=== PATIENT | female | born 1945 | race Caucasian/White ===

== ENCOUNTER 2024-12-23 23:04 | Inpatient (IN) | payer MEDICARE ==
[2024-12-24 02:20] VITALS: BMI 26.3
[2024-12-24] MEDS ORDERED: Acetaminophen 325 MG TAB PO PRN (02:55)
[2024-12-24] MEDS ORDERED: Dextrose 50% Abboject 50 ML SYRINGE SLOW IVP PRN (02:55)
[2024-12-24] MEDS ORDERED: Glucagon 1 MG/ML KIT IM PRN (02:55)
[2024-12-24] MEDS ORDERED: hydrALAZINE 20 MG/ML VIAL SLOW IVP PRN (03:23)
[2024-12-24] MEDS: Acetaminophen 500 MG TAB PO SCH (03:23)
[2024-12-24 03:36] LABS: #Basophils 0.04 10x3/uL (0.0-0.2); #Eosinophils 0.27 10x3/uL (0.0-0.7); #Monocytes 0.56 10x3/uL (0.11-0.59); #Neutrophils 4.68 10x3/uL (1.40-6.50); %Basophils 0.5 % (0.0-1.0); %Eosinophils 3.6 % (0.0-10.0); %Lymphocytes 25.0 % (21.0-51.0); %Monocytes 7.5 % (0.0-10.0); %Neutrophils 63.1 % (42.0-75.0); Hematocrit 36.3 % (36.0-47.0); Hemoglobin 11.9 g/dL (12.0-16.0); Mean Corpuscular Hemoglobin 27.5 pg (27.0-31.0); Mean Corpuscular Volume 83.8 fL (78.0-98.0); Platelet Count 190 10x3/uL (130-400); Red Blood Cell (RBC) Count 4.33 mill/uL (4.20-5.40); White Blood Cell (WBC) Count 7.43 10x3/uL (4.8-10.8)
[2024-12-24 04:26] LABS: ALT (SGPT) 9 U/L (Less than 34); AST (SGOT) 17 U/L (11-34); Albumin 3.7 g/dL (3.1-4.5); Alkaline Phosphatase 77 U/L (40-110); Anion Gap 16 mmol/L (10-20); BUN (Urea Nitrogen) 26 mg/dL (9.8-20.1); Bilirubin, Total 0.5 mg/dL (0.3-1.2); Calc. Creatinine Clearance 62 mL/min (70-130); Calcium 9.6 mg/dL (7.8-10.44); Carbon Dioxide 21 mmol/L (23-31); Cardiac Risk 2.8 (Less than 4.5); Chloride 106 mmol/L (98-107); Cholesterol 107 mg/dl (< 200 Desired); Globulin 2.9 g/dL (2.4-3.5); Glucose 83 mg/dL (83-110); HDL Cholesterol 38 mg/dL (>60 Neg Risk); LDL Cholesterol, Calculated 55 mg/dL; Potassium 3.6 mmol/L (3.5-5.1); Sodium 139 mmol/L (136-145); Triglycerides 72 mg/dL (Less than 150)
[2024-12-24] MEDS: Losartan 25 MG TAB PO SCH (05:37)
[2024-12-24] MEDS ORDERED: Aspirin 325 MG TAB PO SCH ×2 (07:30→09:00)
[2024-12-24] MEDS ORDERED: Nitroglycerin 50 MG/250 ML BOT 250 ML IVPB SCH (07:45)
[2024-12-24] MEDS: Enoxaparin 80 MG (0.8 mL) SYRINGE SC SCH (08:57)
[2024-12-24] MEDS ORDERED: Enoxaparin 80 MG (0.8 mL) SYRINGE SC SCH (09:00)
[2024-12-24] MEDS ORDERED: [UNRECOGNIZED DRUG - OTHER] FS SCH (09:15)
[2024-12-24] MEDS ORDERED: Lidocaine 1% (PF) 30 ML VIAL ONE (11:24)
[2024-12-24] MEDS ORDERED: Adenosine 6 mg (2 mL) VIAL ONE ×2 (11:24→11:27)
[2024-12-24] MEDS ORDERED: Heparin 10,000 UNITS/ 10 ML VIAL ONE (11:24)
[2024-12-24] MEDS ORDERED: Nitroglycerin 50 MG/250 ML BOT 250 ML ONE (11:25)
[2024-12-24] MEDS ORDERED: PHENYLEPHRINE-NS 100 MCG/ML 10 ML SYRINGE ONE (11:25)
[2024-12-24] MEDS ORDERED: Iopamidol 370 76% 100 ML VIAL ONE (11:51)
[2024-12-24] MEDS ORDERED: hydrALAZINE 20 MG/ML VIAL ONE (12:27)
[2024-12-24] MEDS ORDERED: Nitroglycerin 0.4 MG TAB (25 Tab Bottle) SL PRN (13:02)
[2024-12-24] MEDS ORDERED: Acetaminophen 325 MG TAB ONE (14:08)
[2024-12-24] MEDS ORDERED: Ondansetron PF 4 MG/2 ML Vial ONE (14:15)
[2024-12-24] MEDS: Carvedilol 6.25 MG TAB PO SCH (20:39)
[2024-12-24] MEDS: Acetaminophen 325 MG TAB PO PRN (20:40)
[2024-12-25 05:32] LABS: Bacteria/HPF None Seen HPF (None Seen); CAUTI Indications for Culture Acute Hematuria; Glucose, Urine (Dipstick) 500 mg/dL (Negative); Leukocyte 250 Leu/uL (Negative); Protein, Urine (Dipstick) 200 mg/dL (Neg-Trace); Specific Gravity, Urine 1.025 (1.002-1.036)
[2024-12-25 05:33] LABS: RBC/HPF 21-50 HPF (0-3)
[2024-12-25 05:35] LABS: Urine Culture Reflex Yes Yes
[2024-12-25 06:19] LABS: #Basophils 0.05 10x3/uL (0.0-0.2); #Eosinophils Less than 0.03 10x3/uL (0.0-0.7); #Monocytes 0.81 10x3/uL (0.11-0.59); #Neutrophils 10.53 10x3/uL (1.40-6.50); %Basophils 0.4 % (0.0-1.0); %Eosinophils 0.0 % (0.0-10.0); %Lymphocytes 11.5 % (21.0-51.0); %Monocytes 6.3 % (0.0-10.0); %Neutrophils 81.3 % (42.0-75.0); Hematocrit 39.1 % (36.0-47.0); Hemoglobin 12.6 g/dL (12.0-16.0); Mean Corpuscular Hemoglobin 27.5 pg (27.0-31.0); Mean Corpuscular Volume 85.2 fL (78.0-98.0); Platelet Count 226 10x3/uL (130-400); Red Blood Cell (RBC) Count 4.59 mill/uL (4.20-5.40); White Blood Cell (WBC) Count 12.94 10x3/uL (4.8-10.8)
[2024-12-25 06:38] LABS: ALT (SGPT) 9 U/L (Less than 34); AST (SGOT) 22 U/L (11-34); Albumin 3.4 g/dL (3.1-4.5); Alkaline Phosphatase 74 U/L (40-110); Anion Gap 23 mmol/L (10-20); BUN (Urea Nitrogen) 28 mg/dL (9.8-20.1); Bilirubin, Total 0.8 mg/dL (0.3-1.2); Calc. Creatinine Clearance 44 mL/min (70-130); Calcium 9.0 mg/dL (7.8-10.44); Carbon Dioxide 16 mmol/L (23-31); Chloride 102 mmol/L (98-107); Globulin 2.9 g/dL (2.4-3.5); Glucose 105 mg/dL (83-110); Potassium 3.8 mmol/L (3.5-5.1); Sodium 137 mmol/L (136-145)
[2024-12-25] MEDS: Aspirin 81 mg Enteric Coated Tablet PO SCH (09:36)
[2024-12-25] MEDS: cefTRIAXone\\ROCEPHIN 1 GM in Sodium Chloride 0.9% 100 ML IVPB SCH (09:36)
[2024-12-25] MEDS: Losartan 25 MG TAB PO SCH (09:37)
[2024-12-25] MEDS: EPINEPHrine 1 MG/10 ML Abboject SYRINGE FS SCH (12:40)
[2024-12-26 04:11] LABS: #Basophils Less than 0.03 10x3/uL (0.0-0.2); #Eosinophils 0.36 10x3/uL (0.0-0.7); #Monocytes 0.65 10x3/uL (0.11-0.59); #Neutrophils 5.41 10x3/uL (1.40-6.50); %Basophils 0.2 % (0.0-1.0); %Eosinophils 4.4 % (0.0-10.0); %Lymphocytes 20.8 % (21.0-51.0); %Monocytes 8.0 % (0.0-10.0); %Neutrophils 66.2 % (42.0-75.0); Hematocrit 31.2 % (36.0-47.0); Hemoglobin 10.3 g/dL (12.0-16.0); Mean Corpuscular Hemoglobin 27.6 pg (27.0-31.0); Mean Corpuscular Volume 83.6 fL (78.0-98.0); Platelet Count 184 10x3/uL (130-400); Red Blood Cell (RBC) Count 3.73 mill/uL (4.20-5.40); White Blood Cell (WBC) Count 8.17 10x3/uL (4.8-10.8)
[2024-12-26 04:31] LABS: ALT (SGPT) 8 U/L (Less than 34); AST (SGOT) 18 U/L (11-34); Albumin 2.9 g/dL (3.1-4.5); Alkaline Phosphatase 60 U/L (40-110); Anion Gap 14 mmol/L (10-20); BUN (Urea Nitrogen) 34 mg/dL (9.8-20.1); Bilirubin, Total 0.5 mg/dL (0.3-1.2); Calc. Creatinine Clearance 40 mL/min (70-130); Calcium 8.3 mg/dL (7.8-10.44); Carbon Dioxide 22 mmol/L (23-31); Chloride 100 mmol/L (98-107); Globulin 2.7 g/dL (2.4-3.5); Glucose 98 mg/dL (83-110); Potassium 3.5 mmol/L (3.5-5.1); Sodium 132 mmol/L (136-145)
[2024-12-26 12:58] VITALS: BP 124/69; TEMP 97.8
== END 2024-12-26 14:45 | disposition home or self-care (01) | DRG 322 ==
LOC: 2NO 12-24 01:47 → INTOOBSV 12-24 01:47 → CCU 12-24 17:29 → OBSVTOIN 12-24 17:53 → PCU 12-25 15:54
PROVIDERS: ADMIT Family Medicine; ATTEND Family Medicine
PROC: 027036Z Dilation of Coronary Artery, One Artery with Three Drug-eluting Intraluminal Devices, Percutaneous Approach (ICD-10-PCS; principal; 2024-12-24)
PROC: 3E03329 Introduction of Other Anti-infective into Peripheral Vein, Percutaneous Approach (ICD-10-PCS; 2024-12-24)
PROC: 3E033XZ Introduction of Vasopressor into Peripheral Vein, Percutaneous Approach (ICD-10-PCS; 2024-12-25)
PROC: B2111ZZ Fluoroscopy of Multiple Coronary Arteries using Low Osmolar Contrast (ICD-10-PCS; 2024-12-25)
PROC: B2151ZZ Fluoroscopy of Left Heart using Low Osmolar Contrast (ICD-10-PCS; 2024-12-25)
DX: I21.4 Non-ST elevation (NSTEMI) myocardial infarction (principal); I16.1 Hypertensive emergency; N39.0 Urinary tract infection, site not specified; E87.1 Hypo-osmolality and hyponatremia; N17.9 Acute kidney failure, unspecified; I25.10 Atherosclerotic heart disease of native coronary artery without angina pectoris; E11.22 Type 2 diabetes mellitus with diabetic chronic kidney disease; E11.40 Type 2 diabetes mellitus with diabetic neuropathy, unspecified; E78.5 Hyperlipidemia, unspecified; Z96.653 Presence of artificial knee joint, bilateral; E87.70 Fluid overload, unspecified; N18.30 Chronic kidney disease, stage 3 unspecified; D53.9 Nutritional anemia, unspecified; E83.52 Hypercalcemia; I12.9 Hypertensive chronic kidney disease with stage 1 through stage 4 chronic kidney disease, or unspecified chronic kidney disease; Z79.899 Other long term (current) drug therapy; Z98.890 Other specified postprocedural states; Z90.49 Acquired absence of other specified parts of digestive tract; Z88.5 Allergy status to narcotic agent; Z90.710 Acquired absence of both cervix and uterus; Z95.1 Presence of aortocoronary bypass graft; Z79.82 Long term (current) use of aspirin; I25.2 Old myocardial infarction; Z95.5 Presence of coronary angioplasty implant and graft; M54.9 Dorsalgia, unspecified; G89.29 Other chronic pain; Z85.3 Personal history of malignant neoplasm of breast; Z90.13 Acquired absence of bilateral breasts and nipples; R79.1 Abnormal coagulation profile; D63.1 Anemia in chronic kidney disease; E86.0 Dehydration; R31.9 Hematuria, unspecified; B96.1 Klebsiella pneumoniae [K. pneumoniae] as the cause of diseases classified elsewhere
CPT/HCPCS: 36415; 36416; 80053; 80061; 81001; 83036; 84443; 84484; 85025; 85347; 87077; 87086; 87186; 93005; 93010; 93458; 96372; 96374; 99152; 99153; C1769; C1874; C1887; G0378; J0153; J0165; J0360; J0461; J0696; J1644; J1650; J2250; J2405; J3010; J7030; J7120; Q9967

== ENCOUNTER 2025-01-16 04:19 | Inpatient (IN) | payer MEDICARE ==
[2025-01-16] MEDS ORDERED: Ondansetron PF 4 MG/2 ML Vial IVP PRN (06:00)
[2025-01-16] MEDS ORDERED: TIRZEPATIDE 5 MG/0.5 ML SQ SCH (06:15)
[2025-01-16 06:32] LABS: #Basophils 0.05 10x3/uL (0.0-0.2); #Eosinophils 0.49 10x3/uL (0.0-0.7); #Monocytes 0.43 10x3/uL (0.11-0.59); #Neutrophils 3.25 10x3/uL (1.40-6.50); %Basophils 0.9 % (0.0-1.0); %Eosinophils 8.6 % (0.0-10.0); %Lymphocytes 25.5 % (21.0-51.0); %Monocytes 7.6 % (0.0-10.0); %Neutrophils 57.2 % (42.0-75.0); Hematocrit 34.4 % (36.0-47.0); Hemoglobin 10.7 g/dL (12.0-16.0); Mean Corpuscular Hemoglobin 27.3 pg (27.0-31.0); Mean Corpuscular Volume 87.8 fL (78.0-98.0); Platelet Count 187 10x3/uL (130-400); Red Blood Cell (RBC) Count 3.92 mill/uL (4.20-5.40); White Blood Cell (WBC) Count 5.68 10x3/uL (4.8-10.8)
[2025-01-16 06:33] VITALS: BMI 25.7
[2025-01-16] MEDS ORDERED: Dextrose 50% Abboject 50 ML SYRINGE SLOW IVP PRN (06:33)
[2025-01-16] MEDS ORDERED: Glucagon 1 MG/ML KIT IM PRN (06:33)
[2025-01-16 06:47] LABS: ALT (SGPT) 12 U/L (Less than 34); AST (SGOT) 16 U/L (11-34); Albumin 3.6 g/dL (3.1-4.5); Alkaline Phosphatase 76 U/L (40-110); Anion Gap 12 mmol/L (10-20); BUN (Urea Nitrogen) 18 mg/dL (9.8-20.1); Bilirubin, Total 0.6 mg/dL (0.3-1.2); Calc. Creatinine Clearance 62 mL/min (70-130); Calcium 9.5 mg/dL (7.8-10.44); Carbon Dioxide 23 mmol/L (23-31); Chloride 109 mmol/L (98-107); Globulin 2.8 g/dL (2.4-3.5); Glucose 98 mg/dL (83-110); Potassium 3.5 mmol/L (3.5-5.1); Sodium 140 mmol/L (136-145)
[2025-01-16] MEDS ORDERED: Non-Formulary Item 1 EACH (Cholecalciferol (Vitamin D3) [Vitamin D3] 125 MCG Capsule) PO SCH (09:00)
[2025-01-16] MEDS ORDERED: Non-Formulary Item 1 EACH (Carvedilol [Carvedilol] 12.5 MG Tablet) PO SCH (09:00)
[2025-01-16] MEDS ORDERED: Non-Formulary Item 1 EACH (Losartan Potassium [Losartan Potassium] 100 MG Tablet) PO SCH (09:00)
[2025-01-16] MEDS ORDERED: Non-Formulary Item 1 EACH (Aspirin [Aspirin] 81 MG Tablet) PO SCH (09:00)
[2025-01-16] MEDS: Cholecalciferol 1,000 UNITS (25 MCG) TAB PO SCH (09:01)
[2025-01-16] MEDS: Aspirin Chewable 81 MG TAB PO SCH (09:01)
[2025-01-16] MEDS: Carvedilol 6.25 MG TAB PO SCH (09:02)
[2025-01-16] MEDS: Losartan 25 MG TAB PO SCH (09:02)
[2025-01-16] MEDS: Isosorbide Mononitrate 30 MG ER.TAB.S PO SCH (09:02)
[2025-01-16] MEDS ORDERED: Tirzepatide [Mounjaro] 5 MG/0.5 ML Pen.Injctr SC SCH (12:00)
[2025-01-16] MEDS ORDERED: Non-Formulary Item 1 EACH (Ondansetron Hcl [Zofran] 4 MG Tab) SL SCH (12:00)
[2025-01-16] MEDS ORDERED: Iopamidol-370 76% 500 ML MDV (1 ML CHARGE) ONE (12:27)
[2025-01-16] MEDS: Nitroglycerin 0.4 MG TAB (25 Tab Bottle) SL PRN (13:59)
[2025-01-16] MEDS: Acetaminophen 325 MG TAB PO PRN (17:12)
[2025-01-16] MEDS: Enoxaparin 40 MG (0.4 mL) SYRINGE SC SCH (18:39)
[2025-01-16] MEDS: CO Q-10 CAPSULE 100 MG PO SCH (19:51)
[2025-01-17 04:45] LABS: ALT (SGPT) 10 U/L (Less than 34); AST (SGOT) 15 U/L (11-34); Albumin 3.2 g/dL (3.1-4.5); Alkaline Phosphatase 73 U/L (40-110); Anion Gap 13 mmol/L (10-20); BUN (Urea Nitrogen) 15 mg/dL (9.8-20.1); Bilirubin, Total 0.5 mg/dL (0.3-1.2); Calc. Creatinine Clearance 61 mL/min (70-130); Calcium 9.0 mg/dL (7.8-10.44); Carbon Dioxide 21 mmol/L (23-31); Cardiac Risk 2.8 (Less than 4.5); Chloride 108 mmol/L (98-107); Cholesterol 85 mg/dl (< 200 Desired); Globulin 2.4 g/dL (2.4-3.5); Glucose 84 mg/dL (83-110); HDL Cholesterol 30 mg/dL (>60 Neg Risk); LDL Cholesterol, Calculated 39 mg/dL; Potassium 3.8 mmol/L (3.5-5.1); Sodium 138 mmol/L (136-145); Triglycerides 80 mg/dL (Less than 150)
[2025-01-17 05:34] LABS: #Basophils 0.04 10x3/uL (0.0-0.2); #Eosinophils 0.42 10x3/uL (0.0-0.7); #Monocytes 0.39 10x3/uL (0.11-0.59); #Neutrophils 3.57 10x3/uL (1.40-6.50); %Basophils 0.7 % (0.0-1.0); %Eosinophils 7.3 % (0.0-10.0); %Lymphocytes 22.5 % (21.0-51.0); %Monocytes 6.8 % (0.0-10.0); %Neutrophils 62.4 % (42.0-75.0); Hematocrit 32.0 % (36.0-47.0); Hemoglobin 10.3 g/dL (12.0-16.0); Mean Corpuscular Hemoglobin 27.7 pg (27.0-31.0); Mean Corpuscular Volume 86.0 fL (78.0-98.0); Platelet Count 187 10x3/uL (130-400); Red Blood Cell (RBC) Count 3.72 mill/uL (4.20-5.40); White Blood Cell (WBC) Count 5.73 10x3/uL (4.8-10.8)
[2025-01-17] MEDS: Enoxaparin 40 MG (0.4 mL) SYRINGE SC SCH (08:42)
[2025-01-18 05:23] LABS: #Basophils 0.05 10x3/uL (0.0-0.2); #Eosinophils 0.48 10x3/uL (0.0-0.7); #Monocytes 0.37 10x3/uL (0.11-0.59); #Neutrophils 2.93 10x3/uL (1.40-6.50); %Basophils 0.9 % (0.0-1.0); %Eosinophils 8.8 % (0.0-10.0); %Lymphocytes 29.3 % (21.0-51.0); %Monocytes 6.8 % (0.0-10.0); %Neutrophils 54.0 % (42.0-75.0); Hematocrit 34.5 % (36.0-47.0); Hemoglobin 10.8 g/dL (12.0-16.0); Mean Corpuscular Hemoglobin 26.9 pg (27.0-31.0); Mean Corpuscular Volume 85.8 fL (78.0-98.0); Platelet Count 187 10x3/uL (130-400); Red Blood Cell (RBC) Count 4.02 mill/uL (4.20-5.40); White Blood Cell (WBC) Count 5.43 10x3/uL (4.8-10.8)
[2025-01-18 05:46] LABS: ALT (SGPT) 12 U/L (Less than 34); AST (SGOT) 18 U/L (11-34); Albumin 3.4 g/dL (3.1-4.5); Alkaline Phosphatase 79 U/L (40-110); Anion Gap 14 mmol/L (10-20); BUN (Urea Nitrogen) 15 mg/dL (9.8-20.1); Bilirubin, Total 0.4 mg/dL (0.3-1.2); Calc. Creatinine Clearance 55 mL/min (70-130); Calcium 9.3 mg/dL (7.8-10.44); Carbon Dioxide 24 mmol/L (23-31); Chloride 105 mmol/L (98-107); Globulin 2.6 g/dL (2.4-3.5); Glucose 92 mg/dL (83-110); Potassium 3.6 mmol/L (3.5-5.1); Sodium 139 mmol/L (136-145)
[2025-01-18 07:53] LABS: Magnesium 1.4 mg/dL (1.6-2.6)
[2025-01-18] MEDS: Potassium Chloride 20 MEQ in Premix 1 BAG IVPB SCH (08:38)
[2025-01-18] MEDS: Magnesium 2 GM/50 ML(in water) 2 GM in Premix 1 BAG IVPB SCH (13:01)
[2025-01-18] MEDS: Carvedilol 6.25 MG TAB PO SCH (16:24)
[2025-01-18] MEDS: Carvedilol 25 MG TAB PO SCH (18:41)
[2025-01-19 04:08] LABS: #Basophils 0.04 10x3/uL (0.0-0.2); #Eosinophils 0.47 10x3/uL (0.0-0.7); #Monocytes 0.40 10x3/uL (0.11-0.59); #Neutrophils 2.67 10x3/uL (1.40-6.50); %Basophils 0.8 % (0.0-1.0); %Eosinophils 9.6 % (0.0-10.0); %Lymphocytes 26.4 % (21.0-51.0); %Monocytes 8.2 % (0.0-10.0); %Neutrophils 54.8 % (42.0-75.0); Hematocrit 34.8 % (36.0-47.0); Hemoglobin 10.9 g/dL (12.0-16.0); Mean Corpuscular Hemoglobin 26.8 pg (27.0-31.0); Mean Corpuscular Volume 85.5 fL (78.0-98.0); Platelet Count 179 10x3/uL (130-400); Red Blood Cell (RBC) Count 4.07 mill/uL (4.20-5.40); White Blood Cell (WBC) Count 4.88 10x3/uL (4.8-10.8)
[2025-01-19 04:29] LABS: ALT (SGPT) 10 U/L (Less than 34); AST (SGOT) 18 U/L (11-34); Albumin 3.5 g/dL (3.1-4.5); Alkaline Phosphatase 81 U/L (40-110); Anion Gap 14 mmol/L (10-20); BUN (Urea Nitrogen) 16 mg/dL (9.8-20.1); Bilirubin, Total 0.5 mg/dL (0.3-1.2); Calc. Creatinine Clearance 52 mL/min (70-130); Calcium 9.3 mg/dL (7.8-10.44); Carbon Dioxide 24 mmol/L (23-31); Chloride 106 mmol/L (98-107); Globulin 2.4 g/dL (2.4-3.5); Glucose 95 mg/dL (83-110); Magnesium 1.7 mg/dL (1.6-2.6); Potassium 4.0 mmol/L (3.5-5.1); Sodium 140 mmol/L (136-145)
[2025-01-19] MEDS ORDERED: Heparin 10,000 UNITS/ 10 ML VIAL ONE (06:27)
[2025-01-19] MEDS ORDERED: Adenosine 6 mg (2 mL) VIAL ONE (06:27)
[2025-01-19] MEDS ORDERED: Lidocaine 1% (PF) 30 ML VIAL ONE (06:27)
[2025-01-19] MEDS ORDERED: Nitroglycerin 50 MG/250 ML BOT 250 ML ONE (06:28)
[2025-01-19] MEDS ORDERED: hydrALAZINE 20 MG/ML VIAL ONE (07:12)
[2025-01-19] MEDS ORDERED: Iopamidol 370 76% 100 ML VIAL ONE (15:08)
[2025-01-20 04:24] LABS: #Basophils 0.03 10x3/uL (0.0-0.2); #Eosinophils 0.36 10x3/uL (0.0-0.7); #Monocytes 0.40 10x3/uL (0.11-0.59); #Neutrophils 2.82 10x3/uL (1.40-6.50); %Basophils 0.6 % (0.0-1.0); %Eosinophils 7.4 % (0.0-10.0); %Lymphocytes 25.5 % (21.0-51.0); %Monocytes 8.2 % (0.0-10.0); %Neutrophils 57.9 % (42.0-75.0); Hematocrit 33.6 % (36.0-47.0); Hemoglobin 10.7 g/dL (12.0-16.0); Mean Corpuscular Hemoglobin 27.3 pg (27.0-31.0); Mean Corpuscular Volume 85.7 fL (78.0-98.0); Platelet Count 173 10x3/uL (130-400); Red Blood Cell (RBC) Count 3.92 mill/uL (4.20-5.40); White Blood Cell (WBC) Count 4.87 10x3/uL (4.8-10.8)
[2025-01-20 04:54] LABS: ALT (SGPT) 10 U/L (Less than 34); AST (SGOT) 15 U/L (11-34); Albumin 3.3 g/dL (3.1-4.5); Alkaline Phosphatase 75 U/L (40-110); Anion Gap 12 mmol/L (10-20); BUN (Urea Nitrogen) 13 mg/dL (9.8-20.1); Bilirubin, Total 0.4 mg/dL (0.3-1.2); Calc. Creatinine Clearance 48 mL/min (70-130); Calcium 9.3 mg/dL (7.8-10.44); Carbon Dioxide 23 mmol/L (23-31); Chloride 105 mmol/L (98-107); Globulin 2.6 g/dL (2.4-3.5); Glucose 100 mg/dL (83-110); Potassium 3.7 mmol/L (3.5-5.1); Sodium 136 mmol/L (136-145)
[2025-01-20 11:32] VITALS: BP 144/66; TEMP 97.8
== END 2025-01-20 14:05 | disposition home or self-care (01) | DRG 321 ==
LOC: 2NO 04:51 → OBSVTOIN 06:00
PROVIDERS: ADMIT Family Medicine; ATTEND Family Medicine
PROC: 027034Z Dilation of Coronary Artery, One Artery with Drug-eluting Intraluminal Device, Percutaneous Approach (ICD-10-PCS; principal; 2025-01-19)
PROC: 4A023N7 Measurement of Cardiac Sampling and Pressure, Left Heart, Percutaneous Approach (ICD-10-PCS; 2025-01-19)
PROC: B2111ZZ Fluoroscopy of Multiple Coronary Arteries using Low Osmolar Contrast (ICD-10-PCS; 2025-01-19)
DX: I25.10 Atherosclerotic heart disease of native coronary artery without angina pectoris (principal); I21.4 Non-ST elevation (NSTEMI) myocardial infarction; E78.5 Hyperlipidemia, unspecified; R79.89 Other specified abnormal findings of blood chemistry; N18.9 Chronic kidney disease, unspecified; E11.42 Type 2 diabetes mellitus with diabetic polyneuropathy; E11.22 Type 2 diabetes mellitus with diabetic chronic kidney disease; M54.9 Dorsalgia, unspecified; R51.9 Headache, unspecified; I12.9 Hypertensive chronic kidney disease with stage 1 through stage 4 chronic kidney disease, or unspecified chronic kidney disease; Z96.653 Presence of artificial knee joint, bilateral; I25.2 Old myocardial infarction; Z90.13 Acquired absence of bilateral breasts and nipples; Z79.899 Other long term (current) drug therapy; Z79.84 Long term (current) use of oral hypoglycemic drugs; Z79.02 Long term (current) use of antithrombotics/antiplatelets; Z85.3 Personal history of malignant neoplasm of breast; Z98.890 Other specified postprocedural states; Z95.5 Presence of coronary angioplasty implant and graft; Z90.49 Acquired absence of other specified parts of digestive tract; Z79.82 Long term (current) use of aspirin; Z88.5 Allergy status to narcotic agent; R79.1 Abnormal coagulation profile
CPT/HCPCS: 36415; 36416; 71275; 80053; 80061; 83735; 84100; 85025; 92928; 93005; 93010; 93458; 97139; 99152; 99153; C1769; C1874; C1887; C1894; C9600; J0153; J0360; J1644; J1650; J2250; J3010; J3475; J3480; J7030; J7120; Q0162; Q9967